=== PATIENT | female | born 1975 | race Caucasian/White ===

== ENCOUNTER 2017-03-07 13:03 | Inpatient (IN) ==
[2017-03-07] MEDS ORDERED: MOM Conc 10 ML UD.LIQ PO PRN (14:17)
[2017-03-07] MEDS ORDERED: Acetaminophen 325 MG TABLET PO PRN (14:17)
[2017-03-07] MEDS ORDERED: Mag Hydrox/Al Hydrox/Simeth 30 ML UDC PO PRN (14:17)
[2017-03-07] MEDS ORDERED: hydrOXYzine pamoate 25 MG CAPSULE PO PRN (14:17)
[2017-03-07] MEDS ORDERED: *HR* LORazepam 1 MG TABLET PO PRN (14:17)
[2017-03-07] MEDS ORDERED: *HR* LORazepam 2 MG/ML VIAL IM PRN (14:17)
[2017-03-07] MEDS ORDERED: Haloperidol Lactate 5 MG/ML VIAL IM PRN (14:17)
[2017-03-07] MEDS: Nicotine 14 MG PATCH.TD24 TD SCH (15:49)
[2017-03-07] MEDS ORDERED: traMADol 50 MG TABLET PO PRN (16:02)
[2017-03-07] MEDS: OLANZapine 10 MG TAB.RAPDIS PO SCH (19:57)
[2017-03-07] MEDS: traMADol 50 MG TABLET PO PRN (19:57)
[2017-03-07] MEDS: clonazePAM 1 MG TABLET PO PRN (19:57)
[2017-03-07] MEDS: traZODone 50 MG TABLET PO PRN (19:58)
[2017-03-08] MEDS: traMADol 50 MG TABLET PO PRN ×3 (06:56→19:08)
[2017-03-08] MEDS: Venlafaxine XR (24 HR) 75 MG CAP.ER.24H PO SCH (08:41)
[2017-03-08] MEDS: Spironolactone 25 MG TABLET PO SCH (08:42)
[2017-03-08] MEDS: Furosemide 40 MG TABLET PO SCH (08:42)
[2017-03-08] MEDS: Metoprolol XL (24 HR) Succ 50 MG TAB.ER.24H PO SCH (08:42)
[2017-03-08] MEDS: Topiramate 100 MG TABLET PO SCH (08:42)
[2017-03-08] MEDS: Nicotine 14 MG PATCH.TD24 TD SCH (08:43)
[2017-03-08] MEDS: clonazePAM 1 MG TABLET PO PRN ×2 (08:47→17:41)
--- NOTE | 2017-03-08 09:51 | Psychiatry History & Physical ---
Date of Encounter: 03/08/17 Time of Encounter: 09:30 History of Present Illness Patient Stated Chief Complaint: Suicidal homicidal Medicare Admission Attestation: For traditional Medicare patients the provided hospital inpatient services are reasonable and necessary and in the case of services not specified as inpatient -only under 42 CFR 419.22 (n), that they are appropriately provided as inpatient services in accordance 42 CFR 412.3. For Critical Access Hospital the patient may reasonably be expected to be discharged or transferred to a hospital within 96 hours after admission to the Critical Access Hospital. Admitted From: Hospital to Hospital Transfer ([facility] in [facility]) History of Present Illness: Ms. Choudhary is a 41 year old female admitted from [facility] in [place], [place] for evaluation suicidal and homicidal ideation and noncompliance with medication .patient was hearing voices telling her to stab herself and her mother. Patient has a long history of schizoaffective disorder and has been treated in the past and continued to be seen as outpatient she had previous hospitalization in [facility] and [facility] in [place]. She reports poor sleep , auditory hallucination suicidal and homicidal ideation , admitted to noncompliance with medication. Patient told me that she attends daily outpatient activities and groups and she receive multiple services including case management. She has high school education and she worked in the past in customer service until 2009. She has been on disability since. She smokes half a pack cigarettes a day, consumes some caffeine denied any use of alcohol or drugs. Past Med Surg Social Fam HX - Past Medical History Medical history: hypertension - Past Psychiatric History Psychiatric history: Reports: bipolar, prior suicide attempt, schizophrenia, previous psychiatric hospitalization Past psychiatric history details: Psychiatric hospitalization in [address] [place] [address] and [facility] in [place] Family psychiatric history: Unknown Family History of Suicide: Unknown - Past Surgical History Surgical History: cancer surgery, cholecystectomy - Social History Smoking Status: Current every day smoker Smokeless Tobacco Status: No Alcohol use: none Drug use: none Medications & Allergies ClonazePAM [Klonopin] 1 mg PO TID PRN 03/07/17 [History] Furosemide [Lasix] 40 mg PO DAILY 03/07/17 [History] Metoprolol Succinate 200 mg PO DAILY 03/07/17 [History] Nicotine Patch [Nicoderm] 14 mg TD DAILY 03/07/17 [History] OLANZapine [Zyprexa] 20 mg PO HS 03/07/17 [History] Spironolactone [Aldactone] 25 mg PO DAILY 03/07/17 [History] Topiramate [Topamax] 100 mg PO DAILY 03/07/17 [History] Tramadol HCl [Ultram] 50 mg PO Q4-6H PRN 03/07/17 [History] Venlafaxine XR (24 HR) [Effexor XR] 225 mg PO DAILY 03/07/17 [History] Zolpidem [Ambien] 10 mg PO HS PRN 03/07/17 [History] Allergies clozapine [From Clozaril] Adverse Reaction (Verified 03/07/17 14:57) See Comments per list from [facility] ibuprofen Adverse Reaction (Verified 03/07/17 14:09) See Comments only has 1 kidney ketorolac Adverse Reaction (Verified 03/07/17 14:57) See Comments per list from [facility] sumatriptan Adverse Reaction (Verified 03/07/17 14:57) See Comments per list from [facility] Review of Systems Psychiatric: Reports: suicidal ideation, homicidal ideation, auditory hallucinations Mental Status Exam Patient orientation: Yes Person, Yes Time, Yes Place Level of alertness: Alert Patient appearance: Appropriate, Well Groomed, Obese Behavior: calm, cooperative, talkative Psychomotor activity: Normal Eye contact: Maintains Eye Contact Mood description: Anxious, Labile Affect description: congruent with mood, labile Speech pattern: Normal rate, Normal rhythm, Normal tone Speech volume: Normal Thought process: Linear, Goal Oriented Thought content: Yes Suicidal ideation, Yes Homicidal ideation, No Overt delusions Perceptual disturbances: Yes Auditory hallucinations, No Visual hallucinations Attention span: Capable of Focused Attention Memory description: Grossly Intact Patient reliability: Questionable Historian Intelligence estimate: Average Judgment: Limited Insight: Partial Results - Vital Signs Vital signs: Temp Pulse Resp BP 98.7 F 114 24 141/92 03/08/17 08:57 03/08/17 08:57 03/08/17 08:57 03/08/17 08:57 Assessment and Plan (1) Schizoaffective disorder, bipolar type Current visit: Yes Status: Acute Plan: Admit inpatient for safety and stabilization, Close observation, Suicide Precautions per unit protocol, Encourage participation in unit milieu, Group Therapy, Monitor sleep, Monitor appetite Risks, benefits, side effects, alternatives discussed w/pt: Yes Patient agreeable to treatment: Yes
[2017-03-08] MEDS: traZODone 50 MG TABLET PO PRN ×2 (20:50→22:22)
[2017-03-08] MEDS: OLANZapine 10 MG TAB.RAPDIS PO SCH (20:50)
[2017-03-09] MEDS: traMADol 50 MG TABLET PO PRN ×3 (04:29→19:06)
[2017-03-09] MEDS: Spironolactone 25 MG TABLET PO SCH (08:21)
[2017-03-09] MEDS: Metoprolol XL (24 HR) Succ 50 MG TAB.ER.24H PO SCH (08:22)
[2017-03-09] MEDS: Nicotine 14 MG PATCH.TD24 TD SCH (08:22)
[2017-03-09] MEDS: Topiramate 100 MG TABLET PO SCH (08:22)
[2017-03-09] MEDS: Venlafaxine XR (24 HR) 75 MG CAP.ER.24H PO SCH (08:22)
[2017-03-09] MEDS: Furosemide 40 MG TABLET PO SCH (08:22)
[2017-03-09] MEDS: clonazePAM 1 MG TABLET PO PRN ×2 (14:31→21:40)
--- NOTE | 2017-03-09 18:48 | Psychiatry Progress Note ---
Date of Encounter: 03/09/17 Time of Encounter: 18:45 Subjective Interval history: Pt reports that she has not had any hallucinations today since she got her Zyprexa back here. Apparently her elderly mother had misplaced her meds and pt went without Zyprexa for 4 days when the command hallucinations started telling her to kill her own mother. She is nnot getting much sleep. Review of Systems Psychiatric: Reports: abnormal sleep pattern, difficulty concentrating, irritability Objective: Exam Patient orientation: Yes Person, Yes Time, Yes Place Level of alertness: Alert Patient appearance: Appropriate, Well Groomed, Obese Behavior: calm, cooperative, talkative Psychomotor activity: Normal Eye contact: Maintains Eye Contact Mood description: Anxious, Labile Affect description: congruent with mood, labile Speech pattern: Normal rate, Normal rhythm, Normal tone Speech volume: Normal Thought process: Linear, Goal Oriented Thought content: Yes Suicidal ideation, Yes Homicidal ideation, No Overt delusions Perceptual disturbances: Yes Auditory hallucinations, No Visual hallucinations Judgment: Limited Insight: Partial Results - Vital Signs Vital Signs: Temp Pulse Resp BP 97.3 F L 96 20 156/108 03/09/17 09:00 03/09/17 09:00 03/09/17 09:00 03/09/17 09:00 Assessment and Plan (1) Schizoaffective disorder, bipolar type Current visit: Yes Status: Acute Risks, benefits, side effects, alternatives discussed w/pt: Yes Patient agreeable to treatment: Yes Consult Discharge Plan - Plan Referrals: NO,PCP [Primary Care Provider] -
[2017-03-09] MEDS: OLANZapine 10 MG TAB.RAPDIS PO SCH (21:40)
[2017-03-10] MEDS: traMADol 50 MG TABLET PO PRN ×4 (04:48→23:28)
[2017-03-10] MEDS: Nicotine 14 MG PATCH.TD24 TD SCH (08:26)
[2017-03-10] MEDS: Venlafaxine XR (24 HR) 75 MG CAP.ER.24H PO SCH (08:27)
[2017-03-10] MEDS: Topiramate 100 MG TABLET PO SCH (08:27)
[2017-03-10] MEDS: Furosemide 40 MG TABLET PO SCH (08:27)
[2017-03-10] MEDS: Metoprolol XL (24 HR) Succ 50 MG TAB.ER.24H PO SCH (08:27)
[2017-03-10] MEDS: Spironolactone 25 MG TABLET PO SCH (08:27)
[2017-03-10] MEDS: clonazePAM 1 MG TABLET PO PRN ×3 (08:27→23:28)
--- NOTE | 2017-03-10 16:44 | Psychiatry Progress Note ---
Date of Encounter: 03/10/17 Time of Encounter: 14:40 Subjective Interval history: Pt reports she has not had any voices today nor has she had negative or suicidal thoughts. She reports taht she slept better with Doxepin and had very brief hangover in the morning. She is willing to get a lock box for all her meds so her mother does not get to it. Review of Systems Psychiatric: Reports: difficulty concentrating, irritability Objective: Exam Patient orientation: Yes Person, Yes Time, Yes Place Level of alertness: Alert Patient appearance: Appropriate, Well Groomed, Obese Behavior: calm, cooperative, talkative Psychomotor activity: Normal Eye contact: Maintains Eye Contact Mood description: Anxious, Labile Affect description: congruent with mood, labile Speech pattern: Normal rate, Normal rhythm, Normal tone Speech volume: Normal Thought process: Linear, Goal Oriented Thought content: Yes Suicidal ideation, Yes Homicidal ideation, No Overt delusions Perceptual disturbances: Yes Auditory hallucinations, No Visual hallucinations Judgment: Limited Insight: Partial Results - Vital Signs Vital Signs: Temp Pulse Resp BP 97.4 F L 93 18 125/83 03/10/17 09:00 03/10/17 09:00 03/10/17 09:00 03/10/17 09:00 Assessment and Plan (1) Schizoaffective disorder, bipolar type Current visit: Yes Status: Acute Plan: Continue hospitalization, Close observation, Encourage participation in unit milieu Risks, benefits, side effects, alternatives discussed w/pt: Yes Patient agreeable to treatment: Yes Consult Discharge Plan - Plan Referrals: NO,PCP [Primary Care Provider] -
[2017-03-10] MEDS: OLANZapine 10 MG TAB.RAPDIS PO SCH (21:30)
[2017-03-10] MEDS: traZODone 50 MG TABLET PO PRN (23:28)
[2017-03-11] MEDS: traMADol 50 MG TABLET PO PRN ×2 (05:28→12:01)
[2017-03-11 08:04] VITALS: BP 155/103
[2017-03-11] MEDS: Furosemide 40 MG TABLET PO SCH (08:39)
[2017-03-11] MEDS: Topiramate 100 MG TABLET PO SCH (08:40)
[2017-03-11] MEDS: Metoprolol XL (24 HR) Succ 50 MG TAB.ER.24H PO SCH (08:40)
[2017-03-11] MEDS: Nicotine 14 MG PATCH.TD24 TD SCH (08:41)
[2017-03-11] MEDS: Spironolactone 25 MG TABLET PO SCH (08:41)
[2017-03-11] MEDS: Venlafaxine XR (24 HR) 75 MG CAP.ER.24H PO SCH (08:41)
[2017-03-11] MEDS: clonazePAM 1 MG TABLET PO PRN (08:45)
--- NOTE | 2017-03-11 11:57 | Discharge Summary ---
Date of Encounter: 03/12/17 Time of Encounter: 12:30 Diagnosis - Discharge Diagnosis (1) Schizoaffective disorder, bipolar type Status: Acute Medications - Discharge Medications Prescriptions: ClonazePAM [Klonopin] 1 mg PO TID PRN #21 tablet PRN Reason: Anxiety Doxepin [Sinequan] 50 mg PO HS #60 capsule Furosemide [Lasix] 40 mg PO DAILY #30 tablet Metoprolol Succinate 200 mg PO DAILY #30 tab.er.24h OLANZapine [Zyprexa] 20 mg PO HS #30 tablet Spironolactone [Aldactone] 25 mg PO DAILY #30 tablet Topiramate [Topamax] 100 mg PO DAILY #30 tablet Tramadol HCl [Ultram] 50 mg PO Q4-6H PRN #21 tablet PRN Reason: Pain Venlafaxine XR (24 HR) [Effexor XR] 225 mg PO DAILY #90 cap.er.24h ClonazePAM [Klonopin] 1 mg PO TID PRN #21 tablet 03/11/17 [Rx] Doxepin [Sinequan] 50 mg PO HS #60 capsule 03/11/17 [Rx] Furosemide [Lasix] 40 mg PO DAILY #30 tablet 03/11/17 [Rx] Metoprolol Succinate 200 mg PO DAILY #30 tab.er.24h 03/11/17 [Rx] OLANZapine [Zyprexa] 20 mg PO HS #30 tablet 03/11/17 [Rx] Spironolactone [Aldactone] 25 mg PO DAILY #30 tablet 03/11/17 [Rx] Topiramate [Topamax] 100 mg PO DAILY #30 tablet 03/11/17 [Rx] Tramadol HCl [Ultram] 50 mg PO Q4-6H PRN #21 tablet 03/11/17 [Rx] Venlafaxine XR (24 HR) [Effexor XR] 225 mg PO DAILY #90 cap.er.24h 03/11/17 [Rx] Allergies clozapine [From Clozaril] Adverse Reaction (Verified 03/07/17 14:57) See Comments per list from [facility] ibuprofen Adverse Reaction (Verified 03/07/17 14:09) See Comments only has 1 kidney ketorolac Adverse Reaction (Verified 03/07/17 14:57) See Comments per list from [facility] sumatriptan Adverse Reaction (Verified 03/07/17 14:57) See Comments per list from [facility] Provider Date of admission: 03/07/17 13:03 Primary care physician: PCP NO Discharging clinician: Desean Tran Assessment and Plan - Patient/Caregiver Discharge Instructions Activity: resume usual activities as tolerated - Follow [facility] (You will resume partial hospitalization services on , 03/12/2017. The psychiatric nurse practitioner will continue to see you weekly. ) Functional capacity at discharge: independent ambulation Disposition: Home, Self-Care Hospital Course Hospital course: Ms. Choudhary is a 41 year old female with Schizoaffective d/o who became non compliant with meds after her 70 yrs old mother misplaced her Zyprexa. She had relapse of herhallucinations and sought help. Pt was started on her Zyprexa dose and responded quickly with clearing up of psychosis. Her hallucinations remitted.She was observed to improve significantly and participated in group therapy and OT on the unit. She was compliant with treatment without reservation. Pt's follow up appointments were scheduled with his nurse practitioner after a week of d/c. Time spent discussing smoking cessation with patient: 3 to 10 minutes Does patient wish to continue nicotine replacement upon disc: No - Time Spent with Patient Total time spent providing and/or coordinating discharge services: Less than 30 minutes Quality - Multiple Antipsychotics Patient discharged on 2 or more antipsychotic medications: No - Attending Attestation ok Procedures - Procedures Procedures: Medication Management, Crisis Stabilization, Supportive Therapy, Group Therapy, Psychoeducational Therapy Mental Status Exam - Mental Status Exam Patient orientation: Yes Person, Yes Time, Yes Place Level of alertness: Alert Patient appearance: Appropriate, Well Groomed, Obese Behavior: calm, cooperative, talkative Psychomotor activity: Normal Eye contact: Maintains Eye Contact Mood description: Anxious, Labile Affect description: congruent with mood, labile Speech pattern: Normal rate, Normal rhythm, Normal tone Speech Volume: Normal Thought process: Linear, Goal Oriented Thought Content: Yes Suicidal ideation, Yes Homicidal ideation, No Overt delusions Perceptual Disturbances: Yes Auditory hallucinations, No Visual hallucinations Judgment: Limited Insight: Partial
== END 2017-03-11 13:30 | disposition home or self-care (01) | DRG 750 ==
LOC: 1ANU 13:03
PROVIDERS: ADMIT Psychiatry & Neurology Psychiatry; ATTEND Psychiatry & Neurology Psychiatry